=== PATIENT | female | born 1980 | race Caucasian/White ===

== ENCOUNTER 2016-05-27 16:38 | Emergency (ER) | payer OTHER ==
[~2016-05-27] VITALS: Ht 170.2 cm; Wt 63.5 kg
[~2016-05-27 16:38] MED LIST: AMOXICILLIN500 M3 PO; CIPRO500 M1 PO; CIPROFLOXACIN500 M2 PO; CYCLOBENZAPRINE10 M1 PO; IBUPROFEN800 M1 PO; IRON SUPPLEMEN325 MG PO; SYNTHROID50 MCG PO; VALACYCLOVIR500 M1 PO; VITAMIN D31000 UNI1 PO
--- NOTE | 2016-05-27 17:19 | ED INFLUENZA/URI COMPLAINT ---
History of Present Illness General Chief Complaint: General Adult Stated Complaint: FEVER/ACHY Source: patient, family, old records Exam Limitations: no limitations Vital Signs & Intake/Output Vital Signs & Intake/Output Vital Signs Date Time Temp Pulse Resp B/P Pulse O2 O2 Flow FiO2 Ox Delivery Rate 05/27 1841 98.7 92 18 119/76 98 Room Air 05/27 1756 100.7 05/27 1756 100.7 05/27 1713 100.8 05/27 1653 100.8 120 18 119/83 98 Room Air Allergies Coded Allergies: nitrofurantoin (From MACROBID) (NAUSEA 08/07/15) prednisone (CHEST HURT 05/27/16) sulfamethoxazole (From BACTRIM) (RASH, HIVES 05/27/16) trimethoprim (From BACTRIM) (RASH, HIVES 05/27/16) Reconcile Medications Ferrous Sulfate (Slow Release Iron) (Unknown Strength) TABLET.ER (Unknown Dose ) PO SI ANEMIA (Reported) Levothyroxine Sodium (Synthroid) 50 MCG TABLET 1 TAB PO DAILY THYROID ( Reported) Oseltamivir Phosphate (Tamiflu) 75 MG CAPSULE 1 CAP PO BID viral Triage Note: RECEIVED 35 YO FEMALE C/O CHILLS, FEVER INTERMITTENTLY, INTERMITTENT MID LOWER BACK PAIN, ACHY LEGS. DRY NON PRODUCTIVE COUGH. NO C/O N/V/D. NO C/O ABDOMINAL PAIN OR SOB/CP. Triage Nurses Notes Reviewed? yes Onset: Abrupt Duration: day(s): (1), constant Timing: recent history Severity: mild, moderate Severity Numbers: 5 Prior Episodes/Possible Cause: occassional episodes No Modifying Factors: none Associated Symptoms: fever/chills, muscle aches, nasal congestion : No Patient currently breastfeeds: No HPI: 35-year-old female with history of hypothyroid presents complaining of a one-day history of chills subjective fevers generalized bodyaches lower back pain and nonproductive cough all since this morning. The patient [facility] multiple sick contacts at home similar symptoms. She denies shortness of breath wheezing no history of asthma no chest pain abdominal pain nausea vomiting or diarrhea. The patient denies any urinary symptoms rashes to her skin. She is an active smoker 6 cigarettes a day. She is not taken anything for her symptoms today. There are no modifying factors or associated symptoms otherwise. (MARINA FOSTER) Past History Travel History Traveled to [place] past 21 day No Medical History Any Pertinent Medical History? 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 No (MARINA FOSTER) Review of Systems Review of Systems Constitutional: Reports: see HPI. All Other Systems: Reviewed and Negative Comments Review of systems: See HPI, All other systems negative. Constitutional, no chills fever, no malaise HEENT: No visual changes no sore throat ncongestion Cardiovascular: No chest pain , no palpitation Skin, no jaundice no rashes, no change in skin Respiratory: No dyspnea no cough no sputum no hemoptysis GI: No nausea no vomiting, no diarrhea : No dysuria Muscle skeletal: No joint pain, no back pain, no neck pain, Neurologic: No numbness , no headache Psych: No stress Heme/endocrine: No bruising no bleeding Immunology: No lymphadenopathy (MARINA FOSTER) Physical Exam Physical Exam General Appearance: well developed/nourished, alert, awake Ears, Nose, Throat: normal ENT inspection, moist mucous membrane, hearing grossly normal, Tympanic normal, pharynx normal Comments: Well-developed well-nourished patient in no apparent distress. Head/Face: Atraumatic, no maxillary/frontal sinus tenderness, no facial swelling Eyes: PERRL, EOMI, no conjunctival injection. No nystagmus Ear:External auditory canal and Tympanic membranes clear, no erythema, no FB. Nose: atraumatic.Normal inspection: No bleeding, no septal hematoma Throat: Moist mucous membranes.Pharynx normal. No pharyngeal erythema/exudate seen. No stridor/drooling or assymetry. No swelling or edema. Neck: Supple, no lymphadenopathy, FROM Back: FROM, Nontender Cardiovascular: Regular rate and rhythms no murmurs rubs or gallops, Respiratory: Chest nontender.There were no bony deformities, no asymmetry. No respiratory distress. Patient speaking in full complete sentences. Breath sounds clear to auscultation bilaterally: NO W/R/R Extremities: full range of motion Neuro: Alert and oriented x3 Skin: Warm & dry;No appreciable rash on exposed skin Psych: Mood affect normal, normal memory normal judgment. Core Measures Severe Sepsis Present: No Septic Shock Present: No (MARINA FOSTER) Progress Differential Diagnosis: influenza, otitis, pneumonia, pharyngitis, sinusitis, bronchitis Plan of Care: Orders Procedure Date/time Status URINALYSIS 05/28 1723 Complete RAPID VIRAL INFLUENZA A 05/27 171 Complete Laboratory Tests 05/27/16 1726: Urinalysis LIGHT H, Urine Color YEL, Urine Clarity CLEAR, Urine pH 7.0, Ur Specific Frost 1.010, Urine Protein NEG, Urine Ketones NEG, Urine Nitrite NEG, Urine Bilirubin NEG, Urine Urobilinogen 0.2, Ur Leukocyte Esterase MOD H, Ur Microscopic SEDIMENT EXAMINED, Urine RBC 1-3, Urine WBC 1-3 H, Ur Epithelial Cells RARE, Urine Hemoglobin SMALL H, Urine Glucose NEG Microbiology 05/27 1755 NASOPHARYN: Influenza Virus A & B Rapid Smear - COMP Labs ordered old records reviewed patient was medicated with Tylenol in triage 05/27/2016 6:33:16 PM repeat temp 98.7 I discussed with the patient at length all of their results. I had an extensive conversation regarding need for close follow up with their primary care physician this week as well as return precautions. I answered all of their questions, they feel comfortable with the plan and follow-up care. I discussed the medications that they will receive with the patient. I gave them signs and symptoms that could indicate an adverse reaction. I have advised them to limit their activities until they can see how they respond to the medication. (MARINA FOSTER) Initial ED EKG: none (MARINA FOSTER) Departure Departure Time of Disposition: 1832 Disposition: HOME OR SELF CARE Condition: Stable Clinical Impression Primary Impression: Viral syndrome Referrals: SONAM MARTIN,LYNETTE Ma (PCP/Family) Additional Instructions: Follow-up with your primary care physician on Monday Tylenol Motrin every 4-6 hours drink plenty of fluids. Tamiflu as discussed this was sent to [facility] pharmacy Departure Forms: Customer Survey General Discharge Information Prescriptions: Current Visit Scripts Oseltamivir Phosphate (Tamiflu) 1 CAP PO BID #10 CAP (MARINA FOSTER) PA/STAFF TECHNOLOGIST Co-Sign Statement Statement: ED Attending supervision documentation- [] I saw and evaluated the patient. I have also reviewed all the pertinent lab results and diagnostic results. I agree with the findings and the plan of care as documented in the PA's/STAFF TECHNOLOGIST's documentation. [x] I have reviewed the ED Record and agree with the PA's/STAFF TECHNOLOGIST's documentation. [] Additions or exceptions (if any) to the PAs/STAFF TECHNOLOGIST's note and plan are summarized below: [] (MAYLIN HAMEED DO)
[2016-05-27] MEDS ORDERED: SLOW RELEASE47.5 MG PO (17:40)
[2016-05-27] MEDS ORDERED: TAMIFLU75 M1 PO (18:34)
[2016-05-27 18:41] VITALS: BP 119/76
== END 2016-05-27 18:44 ==
LOC: ERH 16:38
DX: B34.9 Viral infection, unspecified (principal)
CPT/HCPCS: 81001; 87804; 87804-59

== ENCOUNTER 2016-07-06 11:01 | Emergency (ER) | payer OTHER ==
[~2016-07-06] VITALS: Ht 170.2 cm; Wt 61.2 kg
[~2016-07-06 11:01] MED LIST changes: +SLOW RELEASE47.5 MG PO; +TAMIFLU75 M1 PO
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
[2016-07-06 14:08] VITALS: BP 132/84
== END 2016-07-06 14:08 ==
LOC: ERH 11:01
DX: S16.1XXA Strain of muscle, fascia and tendon at neck level, initial encounter (principal); S39.012A Strain of muscle, fascia and tendon of lower back, initial encounter; V49.40XA Driver injured in collision with unspecified motor vehicles in traffic accident, initial encounter; Y92.9 Unspecified place or not applicable
CPT/HCPCS: 72050; 72110; 81025

== ENCOUNTER 2017-11-01 21:20 | Emergency (ER) | payer OTHER ==
--- NOTE | 2017-11-01 21:45 | ED CARDIAC/CP/PALPITATIONS ---
History of Present Illness General Chief Complaint: Chest Pain Stated Complaint: CP Source: patient Exam Limitations: no limitations Vital Signs & Intake/Output Vital Signs & Intake/Output Vital Signs Date Time Temp Pulse Resp B/P B/P Pulse O2 O2 Flow FiO2 Mean Ox Delivery Rate 11/02 0023 98.2 60 20 119/70 99 Room Air 11/01 2322 Room Air 11/01 2124 98.4 102 17 137/87 100 Room Air ED Intake and Output 11/02 0000 11/01 1200 Intake Total Output Total Balance Patient 147 lb Weight Weight Reported by Patient Measurement Method Allergies Coded Allergies: nitrofurantoin (From MACROBID) (NAUSEA 08/07/15) prednisone (CHEST HURT - TIGHTENING, HEART PALPITATIONS 12/22/16) sulfamethoxazole (From BACTRIM) (RASH, HIVES 05/27/16) trimethoprim (From BACTRIM) (RASH, HIVES 05/27/16) Reconcile Medications Levothyroxine Sodium (Synthroid) 50 MCG TABLET 1 TAB PO DAILY THYROID ( Reported) Triage Note: PT TO ED WITH C/O MIDSTERNAL NON RADIATING CP SINCE YESTERDAY. PAIN IS INTERMITTENT. ALSO NOW HAS A "WARMTH" TO LEFT ARM. DENIES NAUSEA, SOB OR DIZZINESS. +SMOKER. DENIES ORAL CONTRACEPTIVES OR RECENT PROLONGED SITTING. Triage Nurses Notes Reviewed? yes Onset: Gradual Duration: day(s): Timing: recent history Quality/Severity: moderate Location: central : No Patient currently breastfeeds: No HPI: 37 yo woman, h/o hypothyroidism, presents with 3 days centeral chest pain. "It was a 2/10 a few days ago... and now I don't have any pain... but my mom told me to come in." She notes she had left arm pain a few days ago, but none presently. She has no shortness of breath, chills, wheeze, cough. She denies OCP's, prolonged trips. She is otherwise well. Past History Travel History Traveled to [place] past 21 day No Medical History Any Pertinent Medical History? 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 No Review of Systems Review of Systems Constitutional: Reports: no symptoms. EENTM: Reports: no symptoms. Respiratory: Reports: no symptoms. Cardiovascular: Reports: no symptoms. GI: Reports: no symptoms. Genitourinary: Reports: no symptoms. Musculoskeletal: Reports: no symptoms. Skin: Reports: no symptoms. Neurological/Psychological: Reports: no symptoms. Hematologic/Endocrine: Reports: no symptoms. Immunologic/Allergic: Reports: no symptoms. All Other Systems: Reviewed and Negative Physical Exam Physical Exam General Appearance: well developed/nourished, no apparent distress Head: atraumatic, normal appearance Eyes: Bilateral: normal appearance. Ears, Nose, Throat: normal pharynx, normal ENT inspection Neck: normal inspection, supple, full range of motion Respiratory: normal breath sounds, no respiratory distress, quiet respiration, parasternal chest wall tenderness. Cardiovascular: regular rate/rhythm Gastrointestinal: normal bowel sounds, soft Back: normal inspection Extremities: normal inspection, normal capillary refill, normal range of motion, no edema Neurologic/Psych: no motor/sensory deficits, awake, alert, oriented x 3 Skin: intact, normal color, warm/dry Core Measures ACS in differential dx? No CVA/TIA Diagnosis No Sepsis Present: No Sepsis Focused Exam Completed? No Progress Differential Diagnosis: costochondritis vs acs vs NV vs other. Plan of Care: Orders Procedure Date/time Status TROPONIN LEVEL 11/02 0005 Complete EKG 11/02 0005 Active Add-on Test (ER Only) 11/01 2206 Active THYROID STIMULATING HORMONE 11/01 2144 Complete TROPONIN LEVEL 11/01 2124 Complete LIPASE 11/01 2124 Complete HEPATIC FUNCTION PANEL 11/01 2124 Complete HUMAN BETA HCG SCREEN 11/01 2124 Complete D-DIMER 11/01 2124 Complete CBC WITHOUT DIFFERENTIAL 11/01 2124 Complete BASIC METABOLIC PANEL 11/01 2124 Complete AMYLASE 11/01 2124 Complete EKG 11/01 2121 Active Laboratory Tests 11/02/17 0013: Troponin I < 0.01 11/01/172144: Anion Gap 9, Estimated GFR > 60, BUN/Creatinine Ratio 17.5, Glucose 92, Calcium 9.3, Total Bilirubin 0.3, Direct Bilirubin 0.1, AST 25, ALT 33, Alkaline Phosphatase 35, Troponin I < 0.01, Total Protein 7.0, Albumin 4.3, Amylase 39, Lipase 212, TSH 6.470 H, Total Beta HCG NEGATIVE, D-Dimer High Sensitivty < 200 , CBC w Diff NO MAN DIFF REQ, RBC 4.49, MCV 77.1 L, MCH 25.2 L, MCHC 32.7 L, RDW 15.9 H, MPV 7.6, Gran % 59.7, Lymphocytes % 27.6, Monocytes % 9.6 H, Eosinophils % 2.6, Basophils % 0.5, Absolute Granulocytes 4.8, Absolute Lymphocytes 2.2, Absolute Monocytes 0.8 H, Absolute Eosinophils 0.2, Absolute Basophils 0 Diagnostic Imaging: Viewed by Me: Radiology Read. Discussed w/RAD: Radiology Read. CXR Impression: PATIENT: ELI MARTINS PRESENT AGE: 37 PATIENT ACCOUNT NO: [id number] : 80 LOCATION: [facility] ([facility] ORDERING PHYSICIAN: Mendoza Maza MD SERVICE DATE: 11/01/17 EXAM TYPE: RAD - XRY-PORTABLE CHEST XRAY EXAMINATION: XR PORTABLE CHEST CLINICAL INFORMATION: Chest pain COMPARISON: None TECHNIQUE: Portable frontal view of the chest was obtained. FINDINGS: No significant abnormality is noted involving the heart, lungs, mediastinum, bony thorax or soft tissues. IMPRESSION: Unremarkable examination. DICTATED BY: Romero Ortega MD DATE/TIME DICTATED:11/01/172238 GENERAL WAREHOUSE WORKER:ADELA DATE/TIME TRANSCRIBED:11/01/172238 CONFIDENTIAL, DO NOT COPY WITHOUT APPROPRIATE AUTHORIZATION. <Electronically signed in Other Vendor System> SIGNED BY: Romero Ortega MD 11/01/17 1199 Initial ED EKG: normal axis, normal intervals, normal p-waves, normal QRS complex, normal sinus rhythm Repeat EKG: unchanged Departure Departure Disposition: HOME OR SELF CARE Condition: Stable Clinical Impression Primary Impression: Chest pain Secondary Impressions: Hypothyroidism Referrals: Lyudmila MARTIN,Ajith Ma (PCP/Family) Departure Forms: Customer Survey General Discharge Information Comments 11/02/17, 1:23am... pt sleeping comfortably, no chest pain in the ED. dimer neg, trop neg x 2, ekg benign.... discussed at length... pt referred to cards... close follow up advised. Critical Care Note Critical Care Note Critical Care Time: non-applicable
[2017-11-01 22:18] LABS: ABSOLUTE BASOPHIL COUNT 0 /CUMM (0.0-0.2); ABSOLUTE EOSINOPHIL COUNT 0.2 /CUMM (0.0-0.7); ABSOLUTE GRANULOCYTE CT 4.8 /CUMM (1.4-6.5); ABSOLUTE LYMPH COUNT 2.2 /CUMM (1.2-3.4); ABSOLUTE MONOCYTE COUNT 0.8 /CUMM (0.10-0.60); BASOPHIL % 0.5 % (0.0-2.0); EOSINOPHIL % 2.6 % (0-5); GRANULOCYTE % 59.7 % (42.2-75.2); HEMATOCRIT 34.6 % (37-47); MEAN CORPUSCULAR HGB 25.2 PG (27.0-31.0); MEAN CORPUSCULAR HGB CONC 32.7 G/DL (33.0-37.0); MEAN CORPUSCULAR VOLUME 77.1 FL (81.0-99.0); MEAN PLATELET VOLUME 7.6 FL (7.4-10.4); PLATELET COUNT 384 /CUMM (130-400); RBC DISTRIBUTION WIDTH 15.9 % (11.5-14.5); RED BLOOD CELL CT 4.49 /CUMM (4.20-5.40)
--- NOTE | 2017-11-01 22:44 | RADIOLOGY REPORT ---
EXAMINATION: XR PORTABLE CHEST CLINICAL INFORMATION: Chest pain COMPARISON: None TECHNIQUE: Portable frontal view of the chest was obtained. FINDINGS: No significant abnormality is noted involving the heart, lungs, mediastinum, bony thorax or soft tissues. IMPRESSION: Unremarkable examination.
[2017-11-02 00:23] VITALS: BP 119/70
== END 2017-11-02 01:27 ==
LOC: ERH 21:20
PROVIDERS: Pediatrics
DX: R07.9 Chest pain, unspecified (principal); E03.9 Hypothyroidism, unspecified; M79.602 Pain in left arm; F17.210 Nicotine dependence, cigarettes, uncomplicated
CPT/HCPCS: 71045; 93005; 93010